=== PATIENT | female | born 1955 | race Caucasian/White ===

== ENCOUNTER 2016-12-01 10:16 | Observation (INO) | payer BC ==
[2016-12-01] MEDS ORDERED: SODIUM CHLORIDE 0.9% 1,000 ML IV STA (10:58)
[2016-12-01] MEDS ORDERED: LORazepam 2 MG/ML SYRINGE IV STA (10:59)
--- NOTE | 2016-12-01 11:02 | ED ---
General Adult HPI - General Chief complaint: Syncope Stated complaint: Near syncope Time Seen by Provider: 12/01/16 10:45 Source: patient, RN notes reviewed Mode of arrival: wheelchair Limitations: no limitations - History of Present Illness Initial comments: Patient is a pleasant 61-year-old female presenting to the emergency Department with near syncopal episodes. Patient has had episodes for over 6 months. Patient did have a full syncopal episode 6 months ago. Patient states she did follow up with her doctor and had an EKG done. No headache. Patient does feel it is hard to concentrate during these episodes. No isolated area of weakness. Patient states during episodes she sees tunnel vision and feels like she was going to pass out. Patient attributes this to having low blood pressure. Patient did take her blood pressure today and found it to be 170/109. No chest pain however patient states in past episodes she has had chest discomfort. - Related Data Home Medications Medication Instructions Recorded Confirmed No Known Home Medications [No 12/01/16 12/01/16 Known Home Medications] Allergies Allergy/AdvReac Type Severity Reaction Status Date / Time Sulfa (Sulfonamide Allergy Anaphylaxis Verified 12/01/16 10:54 Antibiotics) Review of Systems ROS Statement: Those systems with pertinent positive or pertinent negative responses have been documented in the HPI. ROS Other: All systems not noted in ROS Statement are negative. Constitutional: Denies: fever Eyes: Denies: eye pain ENT: Denies: ear pain Respiratory: Denies: dyspnea Cardiovascular: Denies: chest pain Endocrine: Denies: fatigue Gastrointestinal: Denies: abdominal pain Genitourinary: Denies: urgency Musculoskeletal: Denies: back pain Skin: Denies: rash Past Medical History Additional Past Medical History / Comment(s): low blood pressure History of Any Multi-Drug Resistant Organisms: None Reported Past Surgical History: Bladder Surgery, Hysterectomy Past Psychological History: No Psychological Hx Reported Smoking Status: Never smoker Past Alcohol Use History: Occasional Past Drug Use History: None Reported General Exam Limitations: no limitations General appearance: alert, in no apparent distress Head exam: Present: atraumatic Eye exam: Present: normal appearance, PERRL ENT exam: Present: normal oropharynx Neck exam: Present: normal inspection Respiratory exam: Present: normal lung sounds bilaterally Cardiovascular Exam: Present: regular rate, normal rhythm Expanded Peripheral pulses: 2+: Radial (R), Radial (L), Posterior Tibialis (R), Posterior Tibialis (L) GI/Abdominal exam: Present: soft. Absent: tenderness Extremities exam: Present: normal inspection. Absent: pedal edema, calf tenderness Neurological exam: Present: alert Psychiatric exam: Present: normal mood, anxious Skin exam: Absent: rash Course Vital Signs 12/01/16 10:17 Temperature 97.7 F Pulse Rate 151 H Respiratory 20 Rate Blood Pressure 174/89 O2 Sat by Pulse 99 Oximetry EKG Findings - EKG Comments: EKG Findings:: Normal sinus rhythm at 93. Normal intervals. Normal axis. Normal QRS. Normal ST-T. Medical Decision Making - Medical Decision Making Patient reexamined and resting comfortably in bed. Patient symptom-free at this time. Patient updated on results and plan. Case discussed with Dr. Jacinto , who will admit for hospital call. - Lab Data Result diagrams: 12/01/16 11:28 12/01/16 11:28 Lab Results 12/01/16 12/01/16 12/01/16 Range/Units 11:28 11:28 11:28 WBC 3.6 L (3.8-10.6) k/uL RBC 4.68 (3.80-5.40) m/uL Hgb 14.9 (11.4-16.0) gm/dL Hct 44.1 (34.0-46.0) % MCV 94.3 (80.0-100.0) fL MCH 31.8 (25.0-35.0) pg MCHC 33.7 (31.0-37.0) g/dL RDW 12.5 (11.5-15.5) % Plt Count 266 (150-450) k/uL Neutrophils % 55 % Lymphocytes % 29 % Monocytes % 11 % Eosinophils % 1 % Basophils % 1 % Neutrophils # 2.0 (1.3-7.7) k/uL Lymphocytes # 1.0 (1.0-4.8) k/uL Monocytes # 0.4 (0-1.0) k/uL Eosinophils # 0.0 (0-0.7) k/uL Basophils # 0.1 (0-0.2) k/uL PT (9.0-12.0) sec INR (<1.1) APTT (22.0-30.0) sec D-Dimer (<0.60) mg/L FEU Sodium 144 (137-145) mmol/L Potassium 4.1 (3.5-5.1) mmol/L Chloride 106 (98-107) mmol/L Carbon Dioxide 26 (22-30) mmol/L Anion Gap 12 mmol/L BUN 15 (7-17) mg/dL Creatinine 0.70 (0.52-1.04) mg/dL Est GFR (MDRD) Af Amer >60 (>60 ml/min/1.73 sqM) Est GFR (MDRD) Non-Af >60 (>60 ml/min/1.73 sqM) Glucose 105 H (74-99) mg/dL Calcium 10.0 (8.4-10.2) mg/dL Total Bilirubin 0.6 (0.2-1.3) mg/dL AST 31 (14-36) U/L ALT 44 (9-52) U/L Alkaline Phosphatase 72 (38-126) U/L Total Creatine Kinase 183 H (30-135) U/L CK-MB (CK-2) 2.2 (0.0-2.4) ng/mL CK-MB (CK-2) Rel Index 1.2 Troponin I <0.012 (0.000-0.034) ng/mL Total Protein 7.8 (6.3-8.2) g/dL Albumin 4.6 (3.5-5.0) g/dL Urine Color Urine Appearance (Clear) Urine pH (5.0-8.0) Ur Specific [place] (1.001-1.035) Urine Protein (Negative) Urine Glucose (UA) (Negative) Urine Ketones (Negative) Urine Blood (Negative) Urine Nitrite (Negative) Urine Bilirubin (Negative) Urine Urobilinogen (<2.0) mg/dL Ur Leukocyte Esterase (Negative) 12/01/16 12/01/16 Range/Units 11:28 12:11 WBC (3.8-10.6) k/uL RBC (3.80-5.40) m/uL Hgb (11.4-16.0) gm/dL Hct (34.0-46.0) % MCV (80.0-100.0) fL MCH (25.0-35.0) pg MCHC (31.0-37.0) g/dL RDW (11.5-15.5) % Plt Count (150-450) k/uL Neutrophils % % Lymphocytes % % Monocytes % % Eosinophils % % Basophils % % Neutrophils # (1.3-7.7) k/uL Lymphocytes # (1.0-4.8) k/uL Monocytes # (0-1.0) k/uL Eosinophils # (0-0.7) k/uL Basophils # (0-0.2) k/uL PT 11.8 (9.0-12.0) sec INR 1.2 (<1.1) APTT 23.5 (22.0-30.0) sec D-Dimer 0.50 (<0.60) mg/L FEU Sodium (137-145) mmol/L Potassium (3.5-5.1) mmol/L Chloride (98-107) mmol/L Carbon Dioxide (22-30) mmol/L Anion Gap mmol/L BUN (7-17) mg/dL Creatinine (0.52-1.04) mg/dL Est GFR (MDRD) Af Amer (>60 ml/min/1.73 sqM) Est GFR (MDRD) Non-Af (>60 ml/min/1.73 sqM) Glucose (74-99) mg/dL Calcium (8.4-10.2) mg/dL Total Bilirubin (0.2-1.3) mg/dL AST (14-36) U/L ALT (9-52) U/L Alkaline Phosphatase (38-126) U/L Total Creatine Kinase (30-135) U/L CK-MB (CK-2) (0.0-2.4) ng/mL CK-MB (CK-2) Rel Index Troponin I (0.000-0.034) ng/mL Total Protein (6.3-8.2) g/dL Albumin (3.5-5.0) g/dL Urine Color Light Yellow Urine Appearance Clear (Clear) Urine pH 7.0 (5.0-8.0) Ur Specific [place] 1.003 (1.001-1.035) Urine Protein Negative (Negative) Urine Glucose (UA) Negative (Negative) Urine Ketones 1+ H (Negative) Urine Blood Negative (Negative) Urine Nitrite Negative (Negative) Urine Bilirubin Negative (Negative) Urine Urobilinogen <2.0 (<2.0) mg/dL Ur Leukocyte Esterase Negative (Negative) - Radiology Data Radiology results: report reviewed (Computed tomography scan of the brain shows no acute process), image reviewed (Chest x-ray shows no acute process) Disposition Clinical Impression: Near syncope Disposition: ADMITTED IP TO THIS [facility] Time of Disposition: 12:57
[2016-12-01 11:45] LABS: Basophils # (A) 0.1 k/uL (0-0.2); Basophils % (A) 1 %; CH 32.4; CHCM 34.5; Eosinophils % (A) 1 %; HCT 44.1 % (34.0-46.0); HGB 14.9 gm/dL (11.4-16.0); Luc % (Auto) 3; Lymphocytes % (A) 29 %; MCH 31.8 pg (25.0-35.0); MCHC 33.7 g/dL (31.0-37.0); MCV 94.3 fL (80.0-100.0); Mean Platelet Volume 6.9; Monocytes # (A) 0.4 k/uL (0-1.0); Monocytes % (A) 11 %; Neutrophils % (A) 55 %; RBC 4.68 m/uL (3.80-5.40); RDW 12.5 % (11.5-15.5); WBC 3.6 k/uL (3.8-10.6)
[2016-12-01 11:54] LABS: ALT 44 U/L (9-52); AST 31 U/L (14-36); Alkaline Phosphatase 72 U/L (38-126); Anion Gap 12 mmol/L; Blood Urea Nitrogen 15 mg/dL (7-17); Carbon Dioxide 26 mmol/L (22-30); Chloride 106 mmol/L (98-107); Glucose 105 mg/dL (74-99); Non-African American GFR(MDRD) >60 (>60 ml/min/1.73 sqM); Potassium 4.1 mmol/L (3.5-5.1); Sodium 144 mmol/L (137-145); Total Bilirubin 0.6 mg/dL (0.2-1.3); Total Protein 7.8 g/dL (6.3-8.2)
--- NOTE | 2016-12-01 11:55 | XR ---
EXAMINATION TYPE: XR chest 2V DATE OF EXAM: 12/01/2016 11:38 AM COMPARISON: None HISTORY: 61-year-old female with syncope TECHNIQUE: PA and lateral views FINDINGS: The cardiomediastinal silhouette, aorta, and pulmonary vasculature are within normal limits. Intersti tial prominence has a chronic appearance. Otherwise, lungs and pleural spaces are clear. IMPRESSION: Chronic-appearing changes without acute cardiopulmonary process.
[2016-12-01 12:05] LABS: INR 1.2 (<1.1); Partial Thromboplastin Time 23.5 sec (22.0-30.0); Prothrombin Time 11.8 sec (9.0-12.0)
--- NOTE | 2016-12-01 12:07 | CT ---
EXAMINATION TYPE: CT brain wo con DATE OF EXAM: 12/01/2016 11:51 AM COMPARISON: NONE INDICATION: blood pressure problems DLP: 945.5 mGycm, Automated exposure control for dose reduction was used. CONTRAST: None CT of the brain is performed utilizing 3 mm thick sections through the posterior fossa and 3 mm thick sections through the remaining calvarium. Study is performed within 24 hours of arrival to the hosp ital. No abnormal hyperdensity is present to suggest an acute intracranial hemorrhage. No mass lesion is evident. No acute infarcts are evident. Ventricles and sulci are appropriate for the patient age. Paranasal sinuses and mastoid air cells within the [id number] are clear. IMPRESSIONS: 1. Normal CT Brain
[2016-12-01 12:12] LABS: Creatine Kinase 183 U/L (30-135)
[2016-12-01 12:23] LABS: Appearance,Urine Clear (Clear); Bilirubin,Urine Negative (Negative); Glucose,Urine (UA) Negative (Negative); Ketones,Urine 1+ (Negative); Leukocyte Esterase,Urine Negative (Negative); Nitrite,Urine Negative (Negative); Protein,Urine Negative (Negative); Specific Gravity,Urine 1.003 (1.001-1.035); UA Billing (MACRO vs. MICRO) CHEM; Urobilinogen,Urine <2.0 mg/dL (<2.0)
[2016-12-01 12:25] LABS: Creatine Kinase MB 2.2 ng/mL (0.0-2.4); Troponin I <0.012 ng/mL (0.000-0.034)
[2016-12-01] MEDS ORDERED: SODIUM CHLORIDE 0.9% 1,000 ML IV SCH (13:00)
[2016-12-01] MEDS ORDERED: HYDROcodone/APAP 5-325MG 1 EACH TAB PO PRN (15:19)
[2016-12-01] MEDS ORDERED: ACETAMINOPHEN TAB 500 MG TAB PO PRN (15:19)
[2016-12-01] MEDS ORDERED: TEMAZEPAM 15 MG CAP PO PRN (15:19)
[2016-12-01] MEDS ORDERED: ALPRAZolam 0.25 MG TAB PO PRN (15:19)
[2016-12-01] MEDS: SODIUM CHLORIDE 0.9% 1,000 ML IV SCH (16:33)
--- NOTE | 2016-12-01 16:43 | HP ---
DATE OF ADMISSION: 12/01/2016 This 61-year-old woman with a past medical history of relative hypotension and orthostatic hypotension with a cardiac murmur, Meniere's disease, history of DJD, back pain, history of bladder surgery, hysterectomy, being followed by Dr. Eileen Cook in the outpatient setting, was apparently driving back from [place]. The patient tunnel vision, similar to episodes she was having for the last one year, and the patient was taken to [facility] and was admitted for evaluation and treatment. The patient's blood pressure was found to be elevated at this time, about 170/109, according to the patient, which is fluctuating now. The patient had episode of syncope about 6 months ago. There is no history of any fever, rigor, or chills. No history of any headaches, seizures at this time. No history of loss of consciousness. PAST MEDICAL HISTORY: 1. History of previous syncopal episode. 2. Low blood pressure. 3. Back pain. 4. DJD. 5. Breast surgery. 6. Hysterectomy. 7. Motion sickness. HOME MEDICATIONS: None. ALLERGIES: SULFA. FAMILY HISTORY: History of cancer. SOCIAL HISTORY: Previous history of smoking. No current smoking or alcohol intake. REVIEW OF SYSTEMS: ENT: As mentioned earlier. CARDIOVASCULAR SYSTEM: No angina, palpitations. RESPIRATORY SYSTEM: No cough, hemoptysis. GI: No nausea, vomiting. : No dysuria. NERVOUS SYSTEM: As mentioned earlier. ALLERGY/IMMUNOLOGY: No asthma, hayfever. MUSCULOSKELETAL: As mentioned earlier. HEMATOLOGY/ONCOLOGY: No history of anemia. ENDOCRINE: No history of diabetes, hypothyroidism. CONSTITUTIONAL: As mentioned earlier. DERMATOLOGY: Negative. RHEUMATOLOGY: Negative. PSYCHIATRY: As mentioned earlier. PHYSICAL EXAMINATION: Patient is alert and oriented x3. Pulse is 76, blood pressure 108/63, respiration 18, temperature 98.1, pulse ox 94% on room air. HEENT: Conjunctivae normal. Oral mucosa moist. NECK: No jugular venous distention. No carotid bruit. No lymph node enlargement. CARDIOVASCULAR SYSTEM: S1, S2 muffled. No S3. No S4. RESPIRATORY: Breath sounds diminished at the bases. No rhonchi. No crackles. ABDOMEN: Soft, nontender. No mass palpable. Scaphoid. LEGS: No edema. No swelling. NERVOUS SYSTEM: Higher functions as mentioned earlier. Moves all 4 limbs. No focal motor or sensory deficit. LYMPHATICS: No lymph node palpable in neck, axillae or groin. SKIN: No ulcer, rash, bleeding. LABS: CBC shows WBC 3.6. Glucose 105. Creatine kinase 183. Ketones 1+ positive. ASSESSMENT: 1. Presyncope and syncopal episode. Rule out orthostatic hypotension. 2. Hypertension and hypertensive urgency with labile hypertension. 3. Increased random blood sugar. 4. Increased creatine kinase. 5. Mild leukopenia. 6. One plus ketones in the urine. 7. History of back pain, degenerative joint disease. 8. History of cardiac murmur. 9. M?ni?re's disease. 10. History of laryngitis. 11. History of varicose veins. 12. History of bladder surgery. 13. History of degenerative joint disease. 14. History of colonoscopy. 15. History of cataracts. 16. Remote history of nicotine dependence. 17. FULL CODE. RECOMMENDATIONS AND DISCUSSION: In this 61-year-old woman who presented with multiple complex medical issues, we will monitor the patient closely, continue the current medications, continue with symptomatic treatment. Will administer caution IV hydration. Monitor closely. Remote telemetry. Two-D echo. Carotid Doppler. Cardiology consultation. Neurology consultation. Prognosis guarded because of multiple complex medical issues. Further recommendations to follow. DVT prophylaxis. See orders for further details. MTDD
[2016-12-02 06:20] VITALS: TEMP 97.1
[2016-12-02] MEDS ORDERED: PANTOPRAZOLE 40 MG TABLET PO SCH (07:30)
[2016-12-02 07:45] VITALS: BP 89/61; PULSE 64; RESP 20
--- NOTE | 2016-12-02 07:57 | US ---
EXAMINATION TYPE: US carotid duplex BILAT DATE OF EXAM: 12/01/2016 4:58 PM COMPARISON: NONE CLINICAL HISTORY: Stenosis. EXAM MEASUREMENTS: RIGHT: Peak Systolic Velocity (PSV) cm/sec ----- Right CCA: 64.4 ----- Right ICA: 70.0 ----- Right ECA: 72.3 ICA/CCA ratio: 1.1 RIGHT: End Diastole cm/sec ----- Right CCA: 19.3 ----- Right ICA: 23.6 ----- Right ECA: 11.2 LEFT: Peak Systolic Velocity (PSV) cm/sec ----- Left CCA: 75.8 ----- Left ICA: 120.5 ----- Left ECA: 56.1 ICA/CCA ratio: 1.6 LEFT: End Diastole cm/sec ----- Left CCA: 19.2 ----- Left ICA: 27.0 ----- Left ECA: 6.0 VERTEBRALS (direction of flow): Right Vertebral: Antegrade Left Vertebral: Antegrade No significant velocity elevations, minimal plaque. Intimal thickening is noted on the left. IMPRESSION: Mild plaquing on the left without significant flow-limiting stenosis of less than 50%. Criteria for Assigning % of Stenosis / Diameter reduction (Estimation based on the indirect measurements of the internal carotid artery velocities (ICA PSV). 1. Normal (no stenosis)=ICA PSV < 125 cm/s: ratio < 2.0: ICA EDV<40 cm/s. 2. Less than 50% stenosis=ICA PSV < 125 cm/s: ratio < 2.0: ICA EDV<40 cm/s. 3. 50 to 69% stenosis=ICA PSV of 125 to 230 cm/s: ration 2.0 ? 4.0: ICA EDV 40-100 cm/s. 4. Greater than 70% stenosis to near occlusion= ICA PSV > 230 cm/s: ratio > 4.0: ICA EDV > 100 cm/s. 5. Near occlusion= ICA PSV velocities may be low or undetectable: variable ratio and ICA EDV. 6. Total occlusion=unable to detect flow.
--- NOTE | 2016-12-02 08:27 | ECHOF ---
Referral Reason:Thrombus MEASUREMENTS -------- HEIGHT: 162.6 cm WEIGHT: 63.5 kg BP: 109/72 RVIDd: 2.6 cm (< 3.3) IVSd: 0.8 cm (0.6 - 1.1) LVIDd: 3.9 cm (3.9 - 5.3) LVPWd: 0.8 cm (0.6 - 1.1) IVSs: 1.2 cm LVIDs: 2.6 cm LVPWs: 1.2 cm LA Diam: 2.6 cm (2.7 - 3.8) LAESV Index (A-L): 9.38 ml/m Ao Diam: 2.7 cm (2.0 - 3.7) AV Cusp: 1.8 cm (1.5 - 2.6) MV EXCURSION: 13.088 mm (> 18.000) MV EF SLOPE: 90 mm/s (70 - 150) EPSS: 0.5 cm MV E Paramjit: 0.74 m/s MV DecT: 231 ms MV A Paramjit: 0.87 m/s MV E/A Ratio: 0.85 FINDINGS -------- Sinus rhythm. This was a technically good study. The left ventricular size is normal. Left ventricular wall thickness is normal. Overall left ventricular systolic function is normal with, an EF between 55 - 60 %. The right ventricle is normal in size. Normal LA size by volume 22+/-6 ml/m2. The right atrium is normal in size. The aortic valve is trileaflet and appears structurally normal. The mitral valve is normal. No mitral regurgitation. The tricuspid valve appears structurally normal. No regurgitation noted The pulmonic valve was not well visualized. The aortic root size is normal. Normal inferior vena cava with normal inspiratory collapse consistent with estimated right atrial pressure of 5 mmHg. There is no pericardial effusion. CONCLUSIONS -------- 1. Sinus rhythm. 2. The aortic root size is normal. 3. Normal inferior vena cava with normal inspiratory collapse consistent with estimated right atrial pressure of 5 mmHg. 4. There is no pericardial effusion. 5. This was a technically good study. 6. Left ventricular wall thickness is normal. 7. Overall left ventricular systolic function is normal with, an EF between 55 - 60 %. 8. Normal LA size by volume 22+/-6 ml/m2. 9. The aortic valve is trileaflet and appears structurally normal. 10. The mitral valve is normal. 11. No regurgitation noted 12. The pulmonic valve was not well visualized. EXPERIMENTAL BOX TESTER: Abigail Fajardo RDCS
[2016-12-02 09:02] LABS: Aty Lym Flag Slight; Basophils % (A) 1 %; CH 32.2; CHCM 34.5; Eosinophils # (A) 0.1 k/uL (0-0.7); Eosinophils % (A) 2 %; HCT 42.3 % (34.0-46.0); HDW 2.41; HGB 14.6 gm/dL (11.4-16.0); Luc # (Auto) 0.18; Luc % (Auto) 5; Lymphocytes # (A) 1.5 k/uL (1.0-4.8); Lymphocytes % (A) 42 %; MCH 32.3 pg (25.0-35.0); MCHC 34.5 g/dL (31.0-37.0); MCV 93.8 fL (80.0-100.0); Mean Platelet Volume 6.7; Monocytes # (A) 0.4 k/uL (0-1.0); Monocytes % (A) 10 %; Neutrophils # (A) 1.4 k/uL (1.3-7.7); Neutrophils % (A) 40 %; RDW 12.2 % (11.5-15.5); WBC 3.6 k/uL (3.8-10.6)
[2016-12-02 09:10] LABS: Anion Gap 8 mmol/L; Blood Urea Nitrogen 13 mg/dL (7-17); Calcium 9.7 mg/dL (8.4-10.2); Carbon Dioxide 27 mmol/L (22-30); Chloride 108 mmol/L (98-107); Cholesterol 166 mg/dL (<200); Glucose 92 mg/dL (74-99); HDL Cholesterol 63 mg/dL (40-60); Non-African American GFR(MDRD) >60 (>60 ml/min/1.73 sqM); Potassium 4.2 mmol/L (3.5-5.1); Sodium 143 mmol/L (137-145); Triglycerides 78 mg/dL (<150)
[2016-12-02] MEDS: SODIUM CHLORIDE 0.9% 1,000 ML IV SCH (11:20)
[2016-12-02 14:33] LABS: RBC Morphology Normal
--- NOTE | 2016-12-02 23:03 | P.CNNES ---
History of Present Illness Consult date: 12/02/16 Requesting physician: Unique Saleh Reason for Consult: syncope Chief complaint: syncope/altered mental status History of Present Illness: patient was seen by neurology at 9:30 AM 12/02/16 Patient is a 61-year-old female being consult by neurology for history of hypotension and orthostatic hypotension with a cardiac murmur, Mnire's disease , history of DJD, back pain, history of bladder surgery, hysterectomy. Patient was barely driving motor vehicle began having tunnel vision which she had 1 prior episode within the last 12 months. Patient was brought to the ED and admitted for evaluation and treatment. On arrival the patient's blood pressure was 170/109. Patient has had syncope episodes are approximately the last 6 months. Patient denies history of fever, rigors or chills. Patient does have a history of left neck shoulder related pain with altered mental status that resolves within 15 minutes that has occurred within the last 2 weeks. Patient also reports ongoing fatigue. Patient also states that she does intermittently without her syncopal episodes have vision changes that consist of tunnel vision and loss of lateral peripheral vision intermittently. Patient did not communicate these findings to her primary care provider and they do not appear to be in the ED record. On contact, the patient is alert and oriented 3, supine in bed resting in no acute distress. Past Medical History Past Medical History: Eye Disorder Additional Past Medical History / Comment(s): low blood pressure-quite often in the past year, cardiac murmur, meniere's dx, back pain-bulging discs, vertigo at times, laryngitis, varicose veins with her pregnancies, R eye visual disturbance when tired or sick due to diagnal double vision. History of Any Multi-Drug Resistant Organisms: None Reported Past Surgical History: Bladder Surgery, Breast Surgery, Hysterectomy, Orthopedic Surgery Additional Past Surgical History / Comment(s): Bladder suspension, colonoscopies -normal, R breast bx benign, bilateral breast implants with removal, bilateral carpal tunnel release, urethral surgery, cataract removal bilaterally with complication (diagnol double vision) affecting R eye-eventually had another eye surgery to mostly correct vision. Past Anesthesia/Blood Transfusion Reactions: Motion Sickness, Postoperative Nausea & Vomiting (PONV) Additional Past Anesthesia/Blood Transfusion Reaction / Comment(s): Pt has clausterphobia. Past Psychological History: No Psychological Hx Reported Additional Psychological History / Comment(s): Pt resides with her spouse. She is independent. Smoking Status: Former smoker Past Alcohol Use History: Occasional Additional Past Alcohol Use History / Comment(s): Pt started smoking in 1973 and quit in 1983. Past Drug Use History: None Reported - Past Family History Father Family Medical History: Cancer Additional Family Medical History / Comment(s): Father of stomach cancer in his mid 80's Mother Family Medical History: CVA/TIA, Diabetes Mellitus, Hypertension Additional Family Medical History / Comment(s): Iddm, CVA. Mother at the age of 67yrs. Medications and Allergies Home Medications Medication Instructions Recorded Confirmed Type No Known Home Medications [No 12/01/16 12/01/16 History Known Home Medications] Allergies Allergy/AdvReac Type Severity Reaction Status Date / Time Sulfa (Sulfonamide Allergy Anaphylaxis Verified 12/01/16 10:54 Antibiotics) Physical Examination - Vital Signs Vital Signs: Vital Signs Temp Pulse Pulse Pulse Pulse Resp BP 12/02/16 07:43 97.1 F L 80 83 64 20 12/02/16 05:57 97.1 F L 71 97 78 18 107/65 12/02/16 03:19 96.8 F L 63 18 BP BP BP BP BP BP Pulse Ox 12/02/16 07:43 83/50 98/69 89/61 94 L 12/02/16 05:57 114/86 111/69 97 12/02/16 03:19 91/59 97 Intake and Output 12/02/16 12/02/16 12/02/16 06:59 14:59 22:59 Intake Total 520 Balance 520 Intake: Oral 520 Other: Voiding Method Toilet Toilet # Voids 2 3 Constitutional: AOx3, cooperative HEENT: NC/AT, no facial asymmetry is seen. Neck: Supple, no masses Respiratory: No increased work of breathing Cardiac: Regular rate and Rhythm GI: non tender, non distended Musculoskeletal: Flue Cleaner strengths are equal bilaterally 5/5, Lower extremity strengths are equal bilaterally at 5/5. Neurological: CN II-XII in tact, patient was AOx3, speech and language are normal, no unilateralizing weakness, no seizure activity note on physical exam. Sensation was normal. Integementary: no rash, no erythema Psychiatric: mood and affect appropriate Results - Laboratory Findings CBC and BMP: 12/02/16 08:32 12/02/16 08:32 Abnormal Lab Findings: Abnormal Labs 12/01/16 12/02/16 12/02/16 16:30 08:32 08:32 WBC 3.6 L Chloride 108 H HDL Cholesterol 63 H U Benzodiazepines Scrn Detected H Assessment and Plan (1) Near syncope Status: Acute Plan: patient appears to have suffered several occurrences of presyncope within the last 2 months. Episodes have been increasing. patient does have uncontrolled blood pressure both hyper and hypotension intermittently. Patient CT of the brain and carotid Doppler noted no significant findings. It does appear that her potential underlying etiology is cardiac related. EEG was ordered to attempt to rule out any other underlying neurological etiology but the patient was discharged prior to completion. EEG can be completed in the outpatient setting. Patient's complaints of fatigue can also be investigated outpatient. Patient will need vitamin B6, B12 and TSH levels assessed outpatient. status: Patient was discharged prior to testing completion by PCP/hospitalist.
--- NOTE | 2016-12-03 16:50 | DS ---
DATE OF ADMISSION: 12/01/2016 DATE OF DISCHARGE: 12/02/2016 FINAL DIAGNOSES: 1. Presyncope and syncopal episode and no evidence of orthostatic hypotension. 2. Relative hypotension and hypertensive urgency with labile hypertension. 3. Increased random blood sugar. 4. Increased creatinine kinase. 5. Leukopenia. 6. 1+ ketones in the urine. 7. History of back pain degenerative joint disease. 8. History of cardiac prominence. 9. History of Meniere's disease. 10. History of laryngitis. 11. History of varicose veins. 12. History of bladder surgery. 13. History of degenerative joint disease. 14. History of colonoscopy. 15. History of cataracts. 16. Remote history nicotine dependence. 17. FULL CODE. DISCHARGE DISPOSITION: The patient is being discharged in stable condition with guarded prognosis. HISTORY OF PRESENT ILLNESS: This 61-year-old woman with a past medical history of multiple medical problems admitted with presyncope and history of syncopal episode. The patient had relative hypotension but patient also had labile hypertension with fluctuating blood pressure also. Monitored closely. Basic labs are negative at this time. Serum cortisol was requested which was found to be 10. The patient is feeling much better. Patient is recommended close follow-up with Dr. Arellano in the outpatient setting. On exam, vitals are stable. CARDIOVASCULAR: S1, S2 muffled. ABDOMEN: Soft. CENTRAL NERVOUS SYSTEM: No focal deficits. DISCHARGE MEDICATIONS AND DISCHARGE ADVICE: 1. Diet is cardiac. 2. Activity limited until follow-up. 3. Follow-up with for further evaluation and continue to follow. [place]
== END 2016-12-02 14:30 | disposition home or self-care (01) ==
LOC: EC 10:16 → 4MS4W 12:57
PROVIDERS: ADMIT Internal Medicine; ATTEND Internal Medicine
DX: R55 Syncope and collapse (principal); I95.9 Hypotension, unspecified; I16.0 Hypertensive urgency; I10 Essential (primary) hypertension; D72.819 Decreased white blood cell count, unspecified; H81.09 Meniere's disease, unspecified ear; Z87.891 Personal history of nicotine dependence; Z88.2 Allergy status to sulfonamides; R41.82 Altered mental status, unspecified; R53.83 Other fatigue
CPT/HCPCS: 99285 ×2; 96374 ×2; 96361 ×4; 36415; 93005; 93306; 85379; 80061; 80053; 80048; 82533; 82550; 82553; 84484; 85025 ×2; 85610; 85730; 81003; 80306; 71020; 93880; 70450; G0378 ×2; J2060

== ENCOUNTER → 2016-12-21 | Outpatient (CLI) | payer BC ==
--- NOTE | 2016-12-21 12:48 | MR ---
EXAMINATION TYPE: MR brain wo/w con DATE OF EXAM: 12/21/2016 7:25 AM COMPARISON: NONE HISTORY: Unspecified visual disturbance CONTRAST: Performed utilizing 13 mL intravenous MultiHance gadolinium contrast. TECHNIQUE: Multiplanar, multiecho imaging on a 3.0 [place] magnet is performed through the brain. Stud y is performed within 24 hours of arrival to the hospital. The craniovertebral junction is normal. The pituitary is normal. Diffusion-weighted imaging is performed. No abnormal hyperintensity is present to suggest an acute i ntracranial infarct or acute ischemic change. There is vague increased signal on inversion recovery weighted sequences within the periventricular w ethan matter which is nonspecific. This could be chronic white matter ischemic change. Mix radiata occipital lobes and optic chiasm appear unremarkable. Orbits appear unremarkable. Ventricles and sulci are appropriate for the patient age. IMPRESSIONS: 1. Mild chronic appearing white matter ischemic changes.
== END | disposition home or self-care (01) ==
LOC: RADMRIMAIN 06:38
PROVIDERS: ATTEND Internal Medicine
DX: R90.82 White matter disease, unspecified (principal); G45.9 Transient cerebral ischemic attack, unspecified; H53.9 Unspecified visual disturbance
CPT/HCPCS: 70553; A9577

== ENCOUNTER 2017-02-12 14:44 | Emergency (ER) | payer OTHER, BC ==
[2017-02-12 14:51] VITALS: PULSE 83; RESP 18
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
[2017-02-12] MEDS ORDERED: KETOROLAC 30 MG/ML 1 ML VIAL IM STA (15:34)
[2017-02-12 16:07] VITALS: BP 140/74; TEMP 98.2
== END 2017-02-12 16:06 | disposition home or self-care (01) ==
LOC: EC 14:44
DX: S16.1XXA Strain of muscle, fascia and tendon at neck level, initial encounter (principal); Z88.2 Allergy status to sulfonamides; Z87.891 Personal history of nicotine dependence; V48.6XXA Car passenger injured in noncollision transport accident in traffic accident, initial encounter; Y92.410 Unspecified street and highway as the place of occurrence of the external cause
CPT/HCPCS: 99284; 96372; 72125; J1885

== ENCOUNTER → 2018-12-19 | Outpatient (CLI) | payer BC, OTHER ==
--- NOTE | 2018-12-19 10:29 | BD ---
EXAMINATION TYPE: Axial Bone Density DATE OF EXAM: 12/19/2018 COMPARISON: NONE CLINICAL HISTORY: Height: 63.25 Weight: 166 FRAX RISK QUESTIONS: Alcohol (3 or more units per day): no Family History (Parent hip fracture): no Glucocorticoids (More than 3mos): no (Ex: prednisone, prednisolone, methylprednisolone, dexamethasone, and hydrocortisone). History of Fracture in Adulthood: no Secondary Osteoporosis: 1. Type 1 Diabetes: no 2. Hyperthyroidism: no 3. Menopause before 45: no 4. Malnutrition: no 5. Chronic liver disease: no Rheumatoid Arthritis: no Current Tobacco Use: no RISK FACTORS HISTORY OF: Family History of Osteoporosis: no Active: yes Diet low in dairy products/other sources of calcium: no Postmenopausal woman: yes Take estrogen and/or progesterone medications: not now How long: about age [age] Lost more than 2 inches in height since high school: no Frequent falls: no Poor Health: no Hyperparathyroidism: no Adrenal Insufficiency: no MEDICATIONS: Prednisone or other steroids: no Thyroid Medications: no Osteoporosis Medications: no Additional Medications: Additional History: High-risk breast lesion age 53 & over 5 years Tamoxifen (not now) EXAM MEASUREMENTS: Bone mineral densitometry was performed using the [employer] System. Bone mineral density as measured about the Lumbar spine is: ----- L1-L4(G/cm2): 1.085 T Score Values are as follows: ----- L2: -1.2 ----- L3: -0.2 ----- L4: -0.4 ----- L1-L4: -0.8 Bone mineral density not previously done at this facility; previously done elsewhere Bone mineral density about the R hip (g/cm2): 0.724 Bone mineral density about the L hip (g/cm2): 0.761 T Score values are as follows: -----R Neck: -2.3 -----L Neck: -2.0 -----R Total: -1.8 -----L Total: -1.5 Bone mineral density not previously done at this facility; previously done elsewhere IMPRESSION: Osteopenia (T Score between -2.5 and -1). There is slightly increased risk of fracture and the patient may be considered for treatment. Re-Screen 2-5 years. NOTE: T-SCORE=SD OF THE YOUNG ADULT MEAN.
== END | disposition home or self-care (01) ==
LOC: RADBDWWP 08:38
PROVIDERS: ATTEND Family Medicine
DX: M85.851 Other specified disorders of bone density and structure, right thigh (principal); M85.852 Other specified disorders of bone density and structure, left thigh; M85.88 Other specified disorders of bone density and structure, other site; Z78.0 Asymptomatic menopausal state
CPT/HCPCS: 77080

== ENCOUNTER → 2019-08-25 | Outpatient (CLI) | payer BC ==
--- NOTE | 2019-09-05 09:38 | MM ---
Reason for exam: additional evaluation requested from prior study. Last mammogram was performed 9 years and 6 months ago. History: Patient is postmenopausal and has history of high-risk lesion on a previous biopsy at age 53. Family history of premenopausal breast cancer in sister at age 45 and breast cancer in aunt. High risk right breast needle localzation of the right breast, April 02, 2009. Benign left mammotome panel of the left breast, March 12, 2009. High risk right mammotome panel of the right breast, March 12, 2009. Retro-pectoral silicone gel implants in both breasts, 1991. Reductions of both breasts. Took estrogen for 2 years beginning at age 45. Physical Findings: Nurse did not find any significant physical abnormalities on exam. MG 3D Diag Mammo Wo Cad MARI Bilateral CC, MLO, and XCCL view(s) were taken. Prior study comparison: June 07, 2017, mammogram, performed at [facility]. June 06, 2016, mammogram, performed at [facility]. December 26, 2010, ultrasound, performed at [facility]. The breast tissue is almost entirely fat. No significant new findings when compared with previous films. These results were verbally communicated with the patient on 09/04/19. ASSESSMENT: Benign, BI-RAD 2 RECOMMENDATION: Routine screening mammogram of both breasts in 1 year. Manage patient on a clinical basis.
--- NOTE | 2019-09-05 09:39 | USB ---
Reason for exam: clinical finding. History: Patient is postmenopausal and has history of high-risk lesion on a previous biopsy at age 53. Family history of premenopausal breast cancer in sister at age 45 and breast cancer in aunt. High risk right breast needle localzation of the right breast, April 02, 2009. Benign left mammotome panel of the left breast, March 12, 2009. High risk right mammotome panel of the right breast, March 12, 2009. Retro-pectoral silicone gel implants in both breasts, 1991. Reductions of both breasts. Took estrogen for 2 years beginning at age 45. US Breast RT Right complete breast ultrasound includes all four quadrants, the retroareolar region and axilla. Finding demonstrates no cystic or solid lesion seen. These results were verbally communicated with the patient 09/04/19. ASSESSMENT: Benign, BI-RAD 2 RECOMMENDATION: Routine screening mammogram of both breasts in 1 year. Manage patient on a clinical basis.
== END | disposition home or self-care (01) ==
LOC: RADMAMWWP 13:35
PROVIDERS: ATTEND Family Medicine
DX: N64.9 Disorder of breast, unspecified (principal)
CPT/HCPCS: 77062; 77066

== ENCOUNTER → 2019-08-29 | Outpatient (CLI) | payer BC ==
--- NOTE | 2019-08-29 16:46 | CT ---
EXAMINATION TYPE: CT chest w con DATE OF EXAM: 08/29/2019 COMPARISON: None HISTORY: Localized enlarged lymph nodes. CT DLP: 220.50 mGycm, Automated exposure control for dose reduction was used. CONTRAST: Performed injected with 100 mL of Isovue 300. TECHNIQUE: Axial images were obtained at 5 mm thick sections. Reconstructed images are reviewed on [employer] computer in the coronal plane. FINDINGS: Portion of the thyroid visualized is normal. No suspicious lung nodules or focal infiltrates are present. No enlarged mediastinal or hilar adenopathy is evident. The ascending aorta diameter at the level o f the main pulmonary artery is 2.9 cm. The main pulmonary artery diameter at the bifurcation is 2.[address] sections are obtained through the upper abdomen. Abdomen is essentially unremarkable. There is some mild prominence of right axillary lymph nodes measuring up to 0.9 cm. Enlarged lymphade nopathy is not otherwise evident. IMPRESSIONS: 1. No suspicious acute changes. 2. There is some mild prominence of right axillary lymphadenopathy measuring up to 0.9 cm which is no t enlarged by CT criteria. Additional workup is required, consider CT abdomen pelvis to look for thomas tional abnormal adenopathy. Findings are nonspecific, but early lymphoma is not excluded.
== END | disposition home or self-care (01) ==
LOC: RADCTMAIN 15:12
PROVIDERS: ATTEND Family Medicine
DX: R59.1 Generalized enlarged lymph nodes (principal); Z01.812 Encounter for preprocedural laboratory examination
CPT/HCPCS: 82565; 84520; 71260; 36415; Q9967

== ENCOUNTER → 2019-09-09 | Outpatient (CLI) | payer BC ==
[2019-09-09 13:16] LABS: African American GFR (CKD) >90 (>60 ml/min/1.73 sqM); Blood Urea Nitrogen 17 mg/dL (7-17); Non-African American GFR(CKD) 80 (>60 ml/min/1.73 sqM)
--- NOTE | 2019-09-09 14:55 | CT ---
EXAMINATION TYPE: CT abdomen pelvis w con DATE OF EXAM: 09/09/2019 COMPARISON: 08/16/2010 HISTORY: enlarged lymph node prior CT chest CT DLP: 1038 mGycm CONTRAST: CT scan of the abdomen and pelvis is performed with Oral Contrast and with IV Contrast, patient injec vickey with 100 mL of Isovue 300. FINDINGS: LUNG BASES-: No visible nodule. No infiltrate. LIVER/GB: Large calcified gallstones noted. No wall thickening identified. Mild hepatic steatosis. 7 mm cyst left hepatic lobe. Biliary tree is of normal caliber. PANCREAS: No inflammation. No distinct mass. SPLEEN: No splenic enlargement. No lesion seen. ADRENALS: No nodule. No thickening. KIDNEYS/BLADDER: No hydronephrosis. No nephrolithiasis. No distinct renal mass. Urinary bladder g rossly unremarkable. BOWEL: Normal appendix. Normal bowel caliber. No inflammation. GENITAL ORGANS: No gross abnormality. LYMPH NODES: No greater than 1cm abdominal or pelvic lymph nodes are appreciated. AORTA: No significant abnormality. OSSEOUS STRUCTURES: No significant abnormality is seen. OTHER: No significant additional abnormality is seen. IMPRESSION: 1. No evidence for adenopathy within the abdomen or pelvis. 2. Cholelithiasis. 3. Mild hepatic steatosis.
== END | disposition home or self-care (01) ==
LOC: RADCTMAIN 12:42
PROVIDERS: ATTEND Family Medicine
DX: K80.20 Calculus of gallbladder without cholecystitis without obstruction (principal); K76.0 Fatty (change of) liver, not elsewhere classified; R59.0 Localized enlarged lymph nodes; R93.89 Abnormal findings on diagnostic imaging of other specified body structures
CPT/HCPCS: 82565; 84520; 74177; 36415; Q9967

== ENCOUNTER → 2020-11-19 | Outpatient (CLI) | payer MEDICARE ==
--- NOTE | 2020-11-22 11:15 | MM ---
Reason for exam: screening (asymptomatic). Last mammogram was performed 1 year and 3 months ago. History: Patient is postmenopausal and has history of high-risk lesion on a previous biopsy at age 53. Family history of premenopausal breast cancer in sister at age 45 and breast cancer in aunt. High risk right breast needle localzation of the right breast, April 02, 2009. Benign left mammotome panel of the left breast, March 12, 2009. High risk right mammotome panel of the right breast, March 12, 2009. Retro-pectoral silicone gel implants in both breasts, 1991. Reductions of both breasts. Took estrogen for 2 years beginning at age 45. Physical Findings: A clinical breast exam by your physician is recommended on an annual basis and results should be correlated with mammographic findings. MG 3D Screening Mammo W/Cad Bilateral CC and MLO view(s) were taken. Prior study comparison: August 25, 2019, bilateral MG 3d diag mammo wo cad MARI. June 07, 2017, mammogram, performed at [facility]. There are scattered fibroglandular densities. Finding: There are dystrophic calcifications in the posterior position of both breasts. Previous mammotome biopsy in the left breast. Asymmetric breast tissue right breast posterior depth, stable. There is no discrete abnormality. ASSESSMENT: Benign, BI-RAD 2 RECOMMENDATION: Routine screening mammogram of both breasts in 1 year.
== END | disposition home or self-care (01) ==
LOC: RADMAMWWP 07:58
PROVIDERS: ATTEND Family Medicine
DX: Z12.31 Encounter for screening mammogram for malignant neoplasm of breast (principal); Z78.0 Asymptomatic menopausal state; Z80.3 Family history of malignant neoplasm of breast
CPT/HCPCS: 77063; 77067

== ENCOUNTER → 2020-12-17 | Outpatient (CLI) | payer MEDICARE | END | disposition home or self-care (01) | LOC: LABPAT 08:41 | PROVIDERS: ATTEND Surgery | DX: Z01.812 Encounter for preprocedural laboratory examination (principal); Z11.52 Encounter for screening for COVID-19 | CPT/HCPCS: U0003; C9803; U0005 ==

== ENCOUNTER 2020-12-24 08:44 | Day surgery (SDC) | payer MEDICARE ==
[2020-12-21 15:07] VITALS: BMI 29.2
[~2020-12-24 08:44] MED LIST: LACTATED RINGERS 1,000 ML IV SCH; LIDOCAINE 1% (10MG/ML) FOR IV START INTRADERMA PRN
[2020-12-24 09:16] VITALS: RESP 16; TEMP 97.4
[2020-12-24] MEDS ORDERED: LIDOCAINE 1% INJ 10MG/ML (20 ML MDV) ONE (09:36)
[2020-12-24] MEDS ORDERED: PROPOFOL 10 MG/ML 20 ML VIAL IV ONE (09:36)
--- NOTE | 2020-12-24 10:06 | P.PCN ---
Date of Procedure: 12/24/20 Preoperative Diagnosis: Screening GERD Postoperative Diagnosis: Gastritis Duodenitis Internal hemorrhoids Procedure(s) Performed: EGD with biopsy Colonoscopy Anesthesia: MAC Surgeon: Shani Hair Pathology: other (Biopsies of esophagus, antrum, duodenal) Condition: stable Disposition: same day Indications for Procedure: 65-year-old female presents for screening colonoscopy. She also had a history of esophageal reflux disease. Plan is for upper and lower endoscopy. Risks, benefits and alternatives were provided to the patient. She did provide consent prior to attending the endoscopy suite. Operative Findings: Gastritis duodenitis Internal hemorrhoids Description of Procedure: The patient was brought into the endoscopy suite and placed in left lateral decubitus position and adequate sedation was achieved using conscious sedation. A bite block was placed and an endoscope was placed in the oropharynx and advanced under endoscopic visualization. The endoscope was advanced through the esophagus into the stomach, through the gastric antrum and in through the pylorus. The third portion of the duodenum was visualized. The endoscope was then slowly withdrawn. The first portion of duodenum was noted have mild inflammatory changes. Biopsies were taken. The antrum was also noted to have inflammatory changes. Biopsies were taken. The gastric body distended normally and the gastric folds appear normal and flattened with insufflation. A retroflexed view of the fundus and GE junction revealed no significant hiatal hernia. The esophagus appeared endoscopically normal. Biopsy was performed. Excess air was removed and the scope was withdrawn. A digital rectal exam was performed and mild internal hemorrhoids palpated. An endoscope was then placed in the rectum and advanced to the cecum as identified by landmarks including the appendiceal orifice and the ileocecal valve. The prep was good. The colonoscope was then slowly withdrawn, examining for any mucosal pelvis. The cecum, ascending, transverse, descending and sigmoid colon were visualized adequately. There were no large neoplastic lesions of the colon. There were no obvious polyps noted throughout the colon. There was no evidence of diverticulosis. Retroflexion was performed in the rectum and internal hemorrhoids were visible. Excess air was removed, the colonoscope withdrawn and the procedure terminated. The patient was then transferred to the recovery unit in stable condition. Repeat colonoscopy should be performed in 8 years.
[2020-12-24 10:08] VITALS: BP 113/74; PULSE 89
== END 2020-12-24 10:58 | disposition home or self-care (01) ==
LOC: ORWHC2ENDO 08:44
PROVIDERS: ATTEND Surgery
DX: Z12.11 Encounter for screening for malignant neoplasm of colon (principal); K64.8 Other hemorrhoids; K29.80 Duodenitis without bleeding; K29.50 Unspecified chronic gastritis without bleeding; K21.00 Gastro-esophageal reflux disease with esophagitis, without bleeding; M81.0 Age-related osteoporosis without current pathological fracture; Z98.42 Cataract extraction status, left eye; Z98.41 Cataract extraction status, right eye; Z98.890 Other specified postprocedural states; Z90.710 Acquired absence of both cervix and uterus; Z80.0 Family history of malignant neoplasm of digestive organs; Z83.3 Family history of diabetes mellitus; Z82.49 Family history of ischemic heart disease and other diseases of the circulatory system; Z79.899 Other long term (current) drug therapy; Z88.2 Allergy status to sulfonamides
CPT/HCPCS: 88305; 43239; J2001; J2704; G0121; 45378

== ENCOUNTER → 2021-11-25 | Outpatient (CLI) | payer MEDICARE ==
--- NOTE | 2021-11-30 09:52 | MM ---
Reason for exam: screening (asymptomatic). Last mammogram was performed 1 year ago. History: Patient is postmenopausal and has history of high-risk lesion on a previous biopsy at age 53. Family history of premenopausal breast cancer in sister at age 45 and breast cancer in aunt. High risk right breast needle localzation of the right breast, April 02, 2009. Benign left mammotome panel of the left breast, March 12, 2009. High risk right mammotome panel of the right breast, March 12, 2009. Retro-pectoral silicone gel implants in both breasts, 1991. Reductions of both breasts. Took estrogen for 2 years beginning at age 45. Physical Findings: A clinical breast exam by your physician is recommended on an annual basis and results should be correlated with mammographic findings. MG 3D Screening Mammo W/Cad Bilateral CC and MLO view(s) were taken. Prior study comparison: November 19, 2020, bilateral MG 3d screening mammo w/cad. August 25, 2019, bilateral MG 3d diag mammo wo cad MARI. The breast tissue is almost entirely fat. No significant changes when compared with prior studies. ASSESSMENT: Benign, BI-RAD 2 RECOMMENDATION: Routine screening mammogram of both breasts in 1 year.
== END | disposition home or self-care (01) ==
LOC: RADMAMWWP 11:13
PROVIDERS: ATTEND Family Medicine
DX: Z12.31 Encounter for screening mammogram for malignant neoplasm of breast (principal); Z78.0 Asymptomatic menopausal state; Z80.3 Family history of malignant neoplasm of breast
CPT/HCPCS: 77063; 77067

== ENCOUNTER → 2022-05-30 | Outpatient (CLI) | payer MEDICARE ==
--- NOTE | 2022-05-30 13:09 | CA ---
Stress Echo Report Tila Toure Age: 67 Gender: F : 1955 Exam Date: 05/30/2022 09:19 Exam Location: [facility] Ht (in): 64 Wt (lb): 157 Ordering Physician: Maryana Moorcho MD Referring Physician: Tashi Nova Ve Teacher: Mariana Lopez RDCS Technologist Procedure CPT: Indication: R07.9 CHEST PAIN ICD-9 Codes: Rhythm: Patient History: Cardiac Medications: Medications in past 24 hours: Contrast: Stress Results Protocol: Tiago Total dose(mL): Exercise Duration (min:sec): 6.[address] Depression (mm): Angina Score: New Score: METS: 7.3 Resting HR: 101 Resting BP: 134 / 74 Peak HR: 153 Peak BP: 181 / 88 Max Predicted HR: 151 101 % Max Predicted HR Target HR: 128 Double Product: [id number] Stress Summary: BP Response: Reason for Termination: PT REACHED TARGET HEART RATE Cardiac Symptoms: NO SYMPTOMS ECG Analysis Resting ECG: Stress ECG: Arrhythmia: Echo Analysis Resting Echo: Peak Echo Analysis: MEASUREMENTS (Male/Female) Normal Values CONCLUSIONS Patient underwent exercise stress echo with a Tiago protocol treadmill stress test. Patient exercised into Stage 2 for a total of 6 minutes 1 second reaching a total of 7.3 METS. Patient's maximum heart rate was 153 which represented 100% age- predicted maximum heart rate. Stress EKG portion: At baseline patient's EKG showed normal sinus rhythm, normal axis, no significant ST or T wave abnormalities. At peak exercise, EKG showed no significant change from baseline. Stress echo portion: 2-D echocardiogram was performed in the parasternal long, personal short, apical 2 and apical four-chamber views at rest, peak exercise and in recovery. At baseline, echocardiogram showed left ventricular ejection fraction 55-60% without wall motion abnormalities. With peak exercise, echocardiogram shows improvement in left ventricular ejection fraction, increase contractility, decrease in left ventricular end systolic dimension without wall motion abnormalities consistent with a normal response to exercise. Conclusions: 1. Normal EKG and echo response to exercise without evidence of inducible ischemia. 2. Fair exercise capacity. Dr. Daniel Borrero DO (Electronically Signed) Final Date: 30 May 2022 13:08
--- NOTE | 2022-05-30 13:13 | CA ---
Transthoracic Echo Report Name: Tila Toure Age: 67 Gender: F : 1955 Exam Date: 05/30/2022 09:00 Exam Location: [facility] Ht (in): 64 Wt (lb): 157 Ordering Physician: Maryana Morocho MD Attending/Referring Phys: Tashi Nova [facility] [employer] Recruiter Mariana Lopez RDCS Procedure CPT: Indications: R07.9 CHEST PAIN Cardiac Hx: Technical Quality: Good Contrast 1: Total Dose (mL): Contrast 2: Total Dose (mL): MEASUREMENTS (Male / Female) Normal Values 2D ECHO LV Diastolic Diameter PLAX 4.0 cm 4.2 - 5.9 / 3.9 - 5.3 cm LV Systolic Diameter PLAX 2.7 cm IVS Diastolic Thickness 1.1 cm 0.6 - 1.0 / 0.6 - 0.9 cm LVPW Diastolic Thickness 1.2 cm 0.6 - 1.0 / 0.6 - 0.9 cm LV Relative Wall Thickness 0.6 RV Internal Dim ED PLAX 2.4 cm LA Volume 36.7 cm??? 18 - 58 / 22 - 52 cm??? M-MODE MV E Point Septal Separation 0.9 cm DOPPLER MV Area PHT 4.2 cm??? Mitral E Point Velocity 61.0 cm/s Mitral A Point Velocity 84.2 cm/s Mitral E to A Ratio 0.7 MV Deceleration Time 180.1 ms MV E' Velocity 7.3 cm/s Mitral E to MV E' Ratio 8.4 FINDINGS Left Ventricle Normal Left ventricular size, wall thickness, systolic function with no obvious regional wall motion abnormalities.left ventricular ejection fraction is estimated at 50-55%. Right Ventricle Normal right ventricular size and function. Right ventricular systolic pressure within normal limits. Right Atrium Normal right atrial size. Left Atrium Normal left atrial size. Mitral Valve Structurally normal mitral valve. Mild mitral regurgitation. Aortic Valve Trileaflet aortic valve. Tricuspid Valve Structurally normal tricuspid valve. Pulmonic Valve Structurally normal pulmonic valve. Pericardium Echo free space anterior to the right ventricle likely represents a fat pad. Aorta Normal size aortic root and proximal ascending aorta. CONCLUSIONS Left ventricular ejection fraction 50-55% Mild mitral regurgitation No pericardial effusion Previewed by: Dr. Daniel Borrero DO (Electronically Signed) Final Date: 30 May 2022 13:12
== END | disposition home or self-care (01) ==
LOC: RADNMMAIN 08:55
PROVIDERS: ATTEND Family Medicine
DX: I34.0 Nonrheumatic mitral (valve) insufficiency (principal)
CPT/HCPCS: 93306; 93351

== ENCOUNTER → 2022-11-27 | Outpatient (CLI) | payer MEDICARE ==
--- NOTE | 2022-11-28 08:56 | BD ---
EXAMINATION TYPE: Axial Bone Density DATE OF EXAM: 11/27/2022 CLINICAL HISTORY: 67 years old Female. ICD-10 CODE: I10, N951 MENOPAUSAL SYMP, Comparison: Prior DEXA bone scan 2018 Height: 62.5 in Weight: 155 lbs FRAX RISK QUESTIONS: Secondary Osteoporosis: 3. Menopause before 45: total hysterectomy age 38 RISK FACTORS HISTORY OF: Family History of Osteoporosis: (p) grandma; (p) aunt Active: yes Diet low in dairy products/other sources of calcium: yes Postmenopausal woman: total hysterectomy age 38 MEDICATIONS: Additional Medications: vit d, omeprazole EXAM MEASUREMENTS: Bone mineral densitometry was performed using the [employer] System. Bone mineral density as measured about the Lumbar spine is: ----- L1-L4(G/cm2): 1.044 T Score Values are as follows: ----- L1: -1.6 ----- L2: -2.0 ----- L3: -0.8 ----- L4: -0.5 ----- L1-L4: -1.1 Z Score Values are as follows: ----- L1: -0.1 ----- L2: -0.6 ----- L3: 0.7 ----- L4: 1.0 ----- L1-L4: 0.4 Bone mineral density has: Decreased -3.8% since study of: 12/19/2018 Bone mineral density about the R hip (g/cm2): 0.766 Bone mineral density about the L hip (g/cm2): 0.809 T Score values are as follows: -----R Neck: -2.3 -----L Neck: -2.0 -----R Total: -1.9 -----L Total: -1.6 Z Score values are as follows: -----R Neck: -0.8 -----L Neck: -0.5 -----R Total: -0.6 -----L Total: -0.3 Bone mineral density has: Decreased -1.6% since study of: 12/19/2018 FRAX%s: The graph provided illustrates a 13.5% chance for a major osteoporotic fx and a 3.1% chance f or the hips probability for fx in 10 years time. IMPRESSION: Osteopenia (T Score between -2.5 and -1) is redemonstrated. There remains slightly increased risk of fracture and the patient may be considered for treatment. Re-Screen 2-5 years. NOTE: T-SCORE=SD OF THE YOUNG ADULT MEAN.
--- NOTE | 2022-11-28 11:33 | MM ---
Reason for Exam: Screening (asymptomatic). Last screening mammogram was performed 12 month(s) ago. Patient History: Menarche at age 14. First Full-Term at age 19. Left ovary removed at age 47. Right ovary removed at age 47. Hysterectomy at age 47. Postmenopausal. Patient has history of breast feeding. Estrogen for 2 years from age 45 until age 47. Bilateral Reduction. 04/02/2009, High risk Excisional Biopsy on the right side. 03/12/2009, Benign Core Biopsy on the left side. 03/12/2009, High risk Core Biopsy on the right side. 2008, Bilateral Implant Removal. 1991, Bilateral Implants. Paternal aunt had breast cancer, age 35. Sister had breast cancer, age 39. Risk Values: Briseida 5 year model risk: 4.5%. NCI Lifetime model risk: 13.3%. Prior Study Comparison: 08/25/2019 Bilateral Diagnostic Mammogram, [facility]. 11/19/2020 Bilateral Screening Mammogram, [facility]. 11/25/2021 Bilateral Screening Mammogram, [facility]. Tissue Density: There are scattered fibroglandular densities. Findings: Analyzed By CAD. Pattern appears stable. Large dense coarse calcifications are present bilaterally and stable from comparison. A core markers within the left breast. No suspicious groups of microcalcifications, spiculated or lobular masses, architectural distortion or other secondary signs of malignancy are mammographically apparent. Overall Assessment: Benign, BI-RAD 2 Management: Screening Mammogram of both breasts in 1 year. A negative mammogram report should not preclude additional follow up of suspicious palpable abnormalities. Patient should continue monthly self breast exam. A clinical breast exam by your physician is recommended on an annual basis and results should be correlated with mammographic findings. Electronically signed and approved by: Hernando Elliott D.O. Radiologis
== END | disposition home or self-care (01) ==
LOC: RADMAMWWP 15:56
PROVIDERS: ATTEND Family Medicine
DX: Z12.31 Encounter for screening mammogram for malignant neoplasm of breast (principal); M85.89 Other specified disorders of bone density and structure, multiple sites; N95.1 Menopausal and female climacteric states; Z80.3 Family history of malignant neoplasm of breast
CPT/HCPCS: 77063; 77067; 77080

== ENCOUNTER 2024-01-15 21:47 | Emergency (ER) | payer MEDICARE ==
[2024-01-15 21:50] VITALS: BP 165/77; PULSE 74; RESP 20; TEMP 98.6
[2024-01-15 22:06] LABS: Appearance,Urine Clear (Clear); Bacteria,Urine Rare /hpf; Bilirubin,Urine Negative (Negative); Blood,Urine Trace (Negative); Color,Urine Colorless; Glucose,Urine (UA) Negative (Negative); Ketones,Urine Negative (Negative); Leukocyte Esterase,Urine Large (Negative); Mucus,Urine Rare /hpf; Nitrite,Urine Negative (Negative); PH, Urine 6.5 (5.0-8.0); Protein,Urine Negative (Negative); RBC,Urine 1 /hpf (0-5); Specific Gravity,Urine 1.003 (1.001-1.035); Urobilinogen,Urine <2.0 mg/dL (<2.0); WBC,Urine 107 /hpf (0-5)
--- NOTE | 2024-01-15 22:22 | ED ---
General Adult HPI - General Chief complaint: Urogenital Stated complaint: Abd Pain Source: patient Mode of arrival: ambulatory Limitations: no limitations - History of Present Illness Initial comments: Tila is a pleasant 68yo F who presents to the ER via private vehicle for evaluation of dysuria. Patient states she began with dysuria frequency and hesitancy this morning. Patient reports no previous UTI in recent years. - Related Data Home Medications Medication Instructions Recorded Confirmed cycloSPORINE 0.05% OPHTH SOLN 1 drop BOTH EYES BID 12/21/20 09/17/22 [Restasis] Biotin(Unknown Dose) 1 tab PO DAILY 09/17/22 09/17/22 L.acidoph,Paracasei, B.lactis 1 cap PO DAILY 09/17/22 09/17/22 [Probiotic] Loratadine 10 mg PO DAILY 09/17/22 09/17/22 Omeprazole 40 mg PO DAILY 09/17/22 09/17/22 Previous Rx's Medication Instructions Recorded Naproxen [Naprosyn] 250 mg PO BID #30 tab 09/19/22 traMADol HCl [Ultram] 25 mg PO QID PRN #6 tab 09/19/22 Atorvastatin [Lipitor] 20 mg PO HS #30 tablet 09/21/22 Cephalexin [Keflex] 500 mg PO Q6HR 7 Days #28 cap 01/15/24 Allergies Allergy/AdvReac Type Severity Reaction Status Date / Time Sulfa (Sulfonamide Allergy Severe Anaphylaxis Verified 01/15/24 21:50 Antibiotics) Review of Systems ROS Statement: Those systems with pertinent positive or pertinent negative responses have been documented in the HPI. ROS Other: All systems not noted in ROS Statement are negative. Past Medical History Past Medical History: Eye Disorder Additional Past Medical History / Comment(s): low blood pressure-quite often in the past year, cardiac murmur, meniere's dx, back pain-bulging discs, vertigo at times, laryngitis, varicose veins with her pregnancies, R eye visual distur bance when tired or sick due to diagnal double vision. History of Any Multi-Drug Resistant Organisms: None Reported Past Surgical History: Bladder Surgery, Breast Surgery, Hysterectomy, Orthopedic Surgery Additional Past Surgical History / Comment(s): Bladder suspension, colonoscopies-normal, R breast bx benign, bilateral breast implants with removal, bilateral carpal tunnel release, urethral surgery, cataract removal bilaterally with complication (diagnol double vision) affecting R eye-eventually had another eye surgery to mostly correct vision. Past Anesthesia/Blood Transfusion Reactions: Motion Sickness, Postoperative Nausea & Vomiting (PONV) Additional Past Anesthesia/Blood Transfusion Reaction / Comment(s): Pt has clausterphobia. Past Psychological History: No Psychological Hx Reported Smoking Status: Never smoker Past Alcohol Use History: Occasional Past Drug Use History: Marijuana - Past Family History Father Family Medical History: Cancer Additional Family Medical History / Comment(s): Father of stomach cancer in his mid 80's Mother Family Medical History: CVA/TIA, Diabetes Mellitus, Hypertension Additional Family Medical History / Comment(s): Iddm, CVA. Mother at the age of 67yrs. Sister(s) Family Medical History: Cancer, Deep Vein Thrombosis (DVT) Additional Family Medical History / Comment(s): breast,ovarian General Exam - General Exam Comments Initial Comments: Physical Exam GENERAL: Patient is well-developed and well-nourished. Patient is nontoxic and well-hydrated and is in no distress. HENT: Normocephalic, Atraumatic. EYES: PERRL, EOMI PULMONARY: Unlabored respirations. CARDIOVASCULAR: Warm and well perfused extremities ABDOMEN: Non-distended SKIN: No rashes or bruising : Deferred NEUROLOGIC: Alert and oriented Normal speech Normal gait MUSCULOSKELETAL: Moving all extremities with no apparent injury PSYCHIATRIC: No SI/HI Limitations: no limitations Course Vital Signs 01/15/24 21:48 Temperature 98.6 F Pulse Rate 74 Respiratory 20 Rate Blood Pressure 165/77 O2 Sat by Pulse 99 Oximetry Medical Decision Making - Medical Decision Making Was pt. sent in by a medical professional or institution (, PA, ENGINE LATHE SET UP OPERATOR, urgent care, hospital, or senior care...) When possible be specific @ -No Did you speak to anyone other than the patient for history (EMS, parent, family, police, friend...)? What history was obtained from this source @ -No Did you review nursing and triage notes (agree or disagree)? Why? @ -I reviewed and agree with nursing and triage notes Were old charts reviewed (outside hosp., previous admission, EMS record, old EKG, old radiological studies, urgent care reports/EKG's, senior care records)? Report findings @ -No old charts were reviewed Differential Diagnosis (chest pain, altered mental status, abdominal pain women, abdominal pain men, vaginal bleeding, weakness, fever, dyspnea, syncope, headache, dizziness, GI bleed, back pain, seizure, CVA, palpatations, mental health)? @ -Not applicable EKG interpreted by me (3pts min.). @ -As above X-rays interpreted by me (1pt min.). @ -None done CT interpreted by me (1pt min.). @ -None done U/S interpreted by me (1pt. min.). @ -None done What testing was considered but not performed or refused? (CT, X-rays, U/S, labs)? Why? @ -None What meds were considered but not given or refused? Why? @ -None Did you discuss the management of the patient with other professionals (professionals i.e. , PA, ENGINE LATHE SET UP OPERATOR, lab, RT, psych nurse, social insurance administrator, set up inspector, teacher, navy airspace officer, case management director)? Give summary @ -No Was smoking cessation discussed for >3mins.? @ -No Was critical care preformed (if so, how long)? @ -No Were there social determinants of health that impacted care today? How? (Homelessness, low income, unemployed, alcoholism, drug addiction, transportation, low edu. Level, literacy, decrease access to med. care, fci, rehab)? @ -No Was there de-escalation of care discussed even if they declined (Discuss DNR or withdrawal of care, Hospice)? DNR status @ -No What co-morbidities impacted this encounter? (DM, HTN, Smoking, COPD, CAD, Cancer, CVA, ARF, Chemo, Hep., AIDS, mental health diagnosis, sleep apnea, morbid obesity)? @ -None Was patient admitted / discharged? Hospital course, mention meds given and route, prescriptions, significant lab abnormalities, going to OR and other pertinent info. @ -Discharge Patient was seen and evaluated in triage to provide a urine sample which is consistent with urinary tract infection. These results were discussed with the patient she was given Pyridium and a starter pack of Keflex and discharged home with prescription for Keflex and plan to follow-up with her primary care for her scheduled appointment on . Undiagnosed new problem with uncertain prognosis? @ -No Drug Therapy requiring intensive monitoring for toxicity (Heparin, Nitro, Insulin, Cardizem)? @ -No Were any procedures done? @ -No Diagnosis/symptom? @ -Urinary tract infection Acute, or Chronic, or Acute on Chronic? @ -Acute Uncomplicated (without systemic symptoms) or Complicated (systemic symptoms)? @ -Default Side effects of treatment? @ -No Exacerbation, Progression, or Severe Exacerbation? @ -No Poses a threat to life or bodily function? How? (Chest pain, USA, OR, pneumonia, PE, COPD, DKA, ARF, appy, cholecystitis, CVA, Diverticulitis, Homicidal, S uicidal, threat to staff... and all critical care pts) @ -No - Lab Data Lab Results 01/15/24 Range/Units 21:53 Urine Color Colorless Urine Appearance Clear (Clear) Urine pH 6.5 (5.0-8.0) Ur Specific Jay 1.003 (1.001-1.035) Urine Protein Negative (Negative) Urine Glucose (UA) Negative (Negative) Urine Ketones Negative (Negative) Urine Blood Trace H (Negative) Urine Nitrite Negative (Negative) Urine Bilirubin Negative (Negative) Urine Urobilinogen <2.0 (<2.0) mg/dL Ur Leukocyte Esterase Large H (Negative) Urine RBC 1 (0-5) /hpf Urine WBC 107 H (0-5) /hpf Urine Bacteria Rare H (None) /hpf Urine Mucus Rare H (None) /hpf Disposition Clinical Impression: Urinary tract infection Disposition: HOME SELF-CARE Condition: Stable Instructions (If sedation given, give patient instructions): Urinary Tract Infection in Women (ED) Prescriptions: Cephalexin [Keflex] 500 mg PO Q6HR 7 Days #28 cap Is patient prescribed a controlled substance at d/c from ED?: No Referrals: Reggie Cole [Primary Care Provider] - 1-2 days
[2024-01-15] MEDS: CEPHALEXIN 500MG STARTER PACK 4 CAP BTL PO STA (22:34)
[2024-01-15] MEDS: PHENAZOPYRIDINE 200 MG TAB PO STA (22:44)
== END 2024-01-15 22:46 | disposition home or self-care (01) ==
LOC: EC 21:47
DX: N39.0 Urinary tract infection, site not specified (principal); Z88.2 Allergy status to sulfonamides
CPT/HCPCS: 81001; 87086; 99284

== ENCOUNTER → 2024-01-30 | Outpatient (CLI) | payer MEDICARE ==
--- NOTE | 2024-02-04 07:51 | MM ---
Reason for Exam: Screening (asymptomatic). Last mammogram was performed 1 year(s) and 2 month(s) ago. Patient History: Menarche at age 14. First Full-Term at age 19. Left ovary removed at age 47. Right ovary removed at age 47. Hysterectomy at age 47. Postmenopausal. Patient has history of breast feeding. Estrogen for 2 years from age 45 until age 47. Bilateral Reduction. 04/02/2009, High risk Excisional Biopsy on the right side. 03/12/2009, Benign Core Biopsy on the left side. 03/12/2009, High risk Core Biopsy on the right side. 2008, Bilateral Implant Removal. 1991, Bilateral Implants. Paternal aunt had breast cancer, age 35. Sister had breast cancer, age 39. Risk Values: Briseida 5 year model risk: 4.5%. NCI Lifetime model risk: 12.7%. Prior Study Comparison: 11/19/2020 Bilateral Screening Mammogram, [facility]. 11/25/2021 Bilateral Screening Mammogram, [facility]. 11/27/2022 Bilateral MG 3D screening mammo w/cad, [facility]. Tissue Density: There are scattered areas of fibroglandular density. Findings: Analyzed By CAD. There is no suspicious group of microcalcifications or new suspicious mass in either breast. Sets of calcifications seen bilaterally. Overall Assessment: Benign, BI-RAD 2 Management: Screening Mammogram of both breasts in 1 year. . Patient should continue monthly self-breast exams. A clinical breast exam by your physician is recommended on an annual basis. This exam should not preclude additional follow-up of suspicious palpable abnormalities. Note on Briseida scores and lifetime risk: 1. A Briseida score greater than 3% is considered moderate risk. If this is the case, consider specialist referral to assess eligibility for a risk reducing agent. 2. If overall lifetime risk for the development of breast cancer is 20% or higher, the patient may qualify for future screening with alternating mammogram and breast MRI. Electronically signed and approved by: Joshua Becker M.D. Radiologis
== END | disposition home or self-care (01) ==
LOC: RADMAMWWP 13:55
PROVIDERS: ATTEND Family Medicine
DX: Z12.31 Encounter for screening mammogram for malignant neoplasm of breast (principal); R92.323 Mammographic fibroglandular density, bilateral breasts; Z78.0 Asymptomatic menopausal state; Z80.3 Family history of malignant neoplasm of breast
CPT/HCPCS: 77063; 77067

== ENCOUNTER → 2024-12-19 | Outpatient (CLI) | payer MEDICARE ==
[2024-12-19 10:37] LABS: C Reactive Protein <0.30 mg/dL (0.00-0.80); Creatine Kinase 146 U/L (26-186)
[2024-12-19 14:26] LABS: Anti-Smith Ab Interp Negative (Negative)
== END | disposition home or self-care (01) ==
LOC: LABWHC1 07:22
PROVIDERS: ATTEND Psychiatry & Neurology Neurology
DX: Z00.00 Encounter for general adult medical examination without abnormal findings (principal); M79.10 Myalgia, unspecified site; R25.2 Cramp and spasm; R53.1 Weakness
CPT/HCPCS: 36415; 82550; 84207; 85652; 86038; 86140; 86235